=== PATIENT | male | born 1970 | race Caucasian/White ===

== ENCOUNTER 2023-02-05 08:51 | Outpatient (OUT) | payer BC, SELFPAY ==
[2023-02-05 09:21] LABS: Basophils Percent Auto 0.6 % (0.2-2.0); Eosinophils Absolute Auto 0.2 10^3/uL (0.0-0.7); Eosinophils Percent Auto 3.6 % (0.9-7.0); Hematocrit 49.1 % (42.0-54.0); Hemoglobin 15.7 g/dL (14.0-18.0); Immature Granulocytes Abs Auto 0.01 10^3/uL (0.00-0.03); Immature Granulocytes Pct Auto 0.2 % (0.0-0.5); Lymphocytes Absolute Auto 2.1 10^3/uL (1.2-3.8); Lymphocytes Percent Auto 40.8 % (20.5-60.0); Mean Corpuscular Hemoglobin 30.4 pg (25.9-34.0); Mean Corpuscular Volume 95.2 fL (80.0-94.0); Mean Platelet Volume 10.9 fL (9.5-13.5); Monocytes Absolute Auto 0.3 10^3/uL (0.3-0.8); Monocytes Percent Auto 5.4 % (1.7-12.0); Neutrophils Absolute Auto 2.5 10^3/uL (1.4-6.5); Neutrophils Percent Auto 49.4 % (43.0-75.0); Platelet Count 163 10^3/uL (150-450); Red Blood Count 5.16 10^6/uL (4.70-6.10); Red Cell Distribution Width 13.1 % (11.0-15.0)
[2023-02-05 10:33] LABS: Free T4 0.84 ng/dL (0.76-1.46)
[2023-02-05 11:28] LABS: Free T3 2.76 pg/mL (2.18-3.98); Thyroid Stimulating Hormone 2.239 uIU/mL (0.358-3.740)
[2023-02-06 09:07] LABS: Testosterone 1006 ng/dL (264-916)
== END 2023-02-05 08:52 | disposition home or self-care (01) ==
LOC: LAB 08:54
PROVIDERS: PCP Family Medicine; Visit Provider Family Medicine
DX: R23.2 Flushing (principal); R61 Generalized hyperhidrosis; E29.1 Testicular hypofunction; E27.40 Unspecified adrenocortical insufficiency
CPT/HCPCS: 36415; 82533; 84403; 84439; 84443; 84481; 85025

== ENCOUNTER 2023-07-05 13:19 | Outpatient (OUT) | payer BC, SELFPAY ==
--- NOTE | 2023-07-05 14:34 | CT_ITS ---
[address] [address] Patient Name: SUSIE MCKEON MRN: [id number] date: 1970 Sex: M Assigned Patient Location: CT Current Patient Location: CT Accession/Order Number: [id number] Exam Date: 07/05/2023 14:30 Report Date: 07/05/2023 16:30 At the request of: HEYDI SHER Procedure: CT pelvis wo con EXAMINATION: CT pelvis wo con HISTORY: Chronic Left Lower Quadrant Pain R10.32 COMPARISON: No relevant comparison available. TECHNIQUE: Axial, Coronal, and Sagittal CT images obtained without IV contrast. Dose reduction techniques were achieved by using automated exposure control and/or adjustment of mA and/or kV according to patient size and/or use of iterative reconstruction technique. FINDINGS: URINARY BLADDER: No visible focal wall thickening, lesion, or calculus. LYMPH NODES: No adenopathy. BOWEL: Nonobstructive bowel gas pattern. Normal appendix. Minimal colonic diverticulosis PELVIC ORGANS: No visible mass. Pelvic organs appropriate for patient age. ANTERIOR WALL: No hernia. BONES: No bone lesion or fracture. OTHER: Negative. CT/CT pelvis wo con IMPRESSION: No acute intraperitoneal abnormality Electronically authenticated by: SUSIE GONZALES Date: 07/05/2023 16:30
== END 2023-07-05 13:20 | disposition home or self-care (01) ==
LOC: CT 13:19
PROVIDERS: PCP Family Medicine; Visit Provider Family Medicine
DX: R10.32 Left lower quadrant pain (principal); G89.29 Other chronic pain
CPT/HCPCS: 72192; Q9967

== ENCOUNTER 2023-08-11 14:19 | Outpatient (OUT) | payer BC, SELFPAY ==
[2023-08-11 15:20] LABS: Alanine Aminotransferase 94 U/L (16-63); Albumin Level 3.5 g/dL (3.4-5.0); Alkaline Phosphatase 81 U/L (46-116); Anion Gap 9.7; Aspartate Amino Transferase 46 U/L (15-37); Bilirubin Total 0.8 mg/dL (0.2-1.0); Calcium 9.4 mg/dL (8.5-10.1); Carbon Dioxide 31.6 mmol/L (21.0-32.0); Chloride 106 mmol/L (98-107); Chol HDL Ratio 3.7; Cholesterol 165 mg/dL (<=200); Estimated GFR (African America >60 (>=60); Estimated GFR (Non-African Ame >60 (>=60); Globulin 3.4 g/dL; Glucose 118 mg/dL (74-106); HDL Cholesterol 45 mg/dL (40-60); LDL Cholesterol Calculated 110.2 mg/dL; Potassium 4.3 mmol/L (3.5-5.1); Sodium 143 mmol/L (136-145); Total Protein 6.9 g/dL (6.4-8.2); Triglycerides 49 mg/dL (<=150); VLDL CHOLESTEROL 9.8 mg/dL
[2023-08-12 04:08] LABS: Testosterone 507 ng/dL (264-916)
== END 2023-08-11 14:20 | disposition home or self-care (01) ==
LOC: LAB 14:21
PROVIDERS: PCP Family Medicine; Visit Provider Family Medicine
DX: E78.2 Mixed hyperlipidemia (principal); Z13.1 Encounter for screening for diabetes mellitus; E34.8 Other specified endocrine disorders; R53.82 Chronic fatigue, unspecified
CPT/HCPCS: 36415; 80053; 80061; 82627; 82670; 84403

== ENCOUNTER 2024-02-28 09:56 | Outpatient (OUT) | payer BC, SELFPAY ==
[2024-02-28 11:10] LABS: Estimated Average Glucose 128 mg/dL; Glycohemoglobin A1C 6.1 % (4.5-6.2)
[2024-02-28 11:20] LABS: Anion Gap 11.2; Carbon Dioxide 27.7 mmol/L (21.0-32.0); Chloride 106 mmol/L (98-107); Glucose 123 mg/dL (74-106); Potassium 3.9 mmol/L (3.5-5.1); Sodium 141 mmol/L (136-145)
[2024-02-28 11:21] LABS: Alanine Aminotransferase 62 U/L (16-63); Albumin Globulin Ratio 1.2; Albumin Level 3.8 g/dL (3.4-5.0); Alkaline Phosphatase 86 U/L (46-116); Aspartate Amino Transferase 40 U/L (15-37); Calcium 9.2 mg/dL (8.5-10.1); Estimated GFR (African America >60 (>=60 mL/min/1.73m^2); Estimated GFR (Non-African Ame >60 (>=60 mL/min/1.73m^2); Globulin 3.1 g/dL; Total Protein 6.9 g/dL (6.4-8.2)
== END 2024-02-28 09:57 | disposition home or self-care (01) ==
LOC: LAB 10:00
PROVIDERS: PCP Family Medicine; Visit Provider Family Medicine
DX: R73.01 Impaired fasting glucose (principal); K75.81 Nonalcoholic steatohepatitis (NASH)
CPT/HCPCS: 36415; 80053; 83036